=== PATIENT | male | born 1955 | race Caucasian/White ===

== ENCOUNTER 2017-09-26 18:46 | Inpatient (IN) | payer OTHER, MEDICAID ==
[~2017-09-26] VITALS: Ht 167.6 cm; Wt 84.8 kg
[~2017-09-26 18:46] MED LIST: ACT15; ASPIR-LOW81 M1 PO; CARD1 PO; GLU10 PO; GLU500 PO; LANTUS SOLOS100 U/M1 SQ; OMEPRAZOLE DR20 M1 PO; PRA10 PO; PRAVACHOL20 MG PO; TRIPHROCAPS1 SGL PO; V5 PO; VITAMIN D32000 I2 PO
[2017-09-26 22:08] LABS: BASOPHIL % 0.3 % (0-2); PLATELET COUNT 215 x10^3mcL (130-400); RED CELL DISTRIBUTION WIDTH 14.1 % (11.5-14.5)
[2017-09-26 22:16] LABS: CALCIUM 8.7 mg/dL (8.5-10.1); CARBON DIOXIDE 33.8 mmol/L (21-32); POTASSIUM SERUM 3.8 mmol/L (3.5-5.1)
[2017-09-26 22:19] LABS: CREATININE SERUM 8.1 mg/dL (0.7-1.3)
[2017-09-26] MEDS ORDERED: LOSARTAN POTASS50 M1 PO (23:40)
[2017-09-26] MEDS ORDERED: RANITIDINE HCL150 MG PO (23:41)
[2017-09-26] MEDS ORDERED: AURYXIA1 GM PO (23:42)
[2017-09-26] MEDS ORDERED: HUMALOG KW100 UNIT/1 SQ (23:42)
[2017-09-26] MEDS ORDERED: VIT D2 PO (23:44)
[2017-09-27] VITALS (10 sets, daily range): BP systolic 175–197; BP diastolic 91–102
[2017-09-27 04:12] LABS: MAGNESIUM 2.7 mg/dL (1.8-2.4); PHOSPHOROUS 2.6 mg/dL (2.5-4.9)
[2017-09-27 04:13] LABS: CHOLESTEROL/HDL RATIO 2.8
[2017-09-27 04:13] LABS: ALBUMIN 3.4 g/dL (3.4-5.0); BILIRUBIN TOTAL 0.4 mg/dL (0.20-1.00); CALCIUM 8.5 mg/dL (8.5-10.1); CARBON DIOXIDE 32.4 mmol/L (21-32); POTASSIUM SERUM 4.1 mmol/L (3.5-5.1); TOTAL PROTEIN, SERUM 6.7 g/dL (6.4-8.2)
[2017-09-27 04:14] LABS: T3 TOTAL 0.97 ng/mL
[2017-09-27 04:15] LABS: CREATININE SERUM 8.3 mg/dL (0.7-1.3)
[2017-09-27 04:29] LABS: FREE T4 1.03 ng/dL (0.76-1.46); T4(THYROXINE) 8.3 ug/dL (4.7-13.3)
[2017-09-27 04:33] LABS: IRON 89 ug/dL (65-170)
[2017-09-27 04:34] LABS: TOTAL IRON BINDING CAPACITY 201 ug/dL (250-450)
[2017-09-27 04:40] LABS: RED BLOOD CELLS 2.91 M/mm3 (4.52-5.90)
[2017-09-27 07:10] LABS: BASOPHIL % 0.3 % (0-2); PLATELET COUNT 212 x10^3mcL (130-400); RED CELL DISTRIBUTION WIDTH 13.9 % (11.5-14.5)
[2017-09-27 07:13] LABS: MAGNESIUM 2.7 mg/dL (1.8-2.4)
[2017-09-27 10:40] LABS: RED BLOOD CELLS 2.9 M/mm3 (4.52-5.90)
[2017-09-28 06:06] VITALS: BP 128/67
[2017-09-28 07:04] LABS: BASOPHIL % 0.3 % (0-2); PLATELET COUNT 227 x10^3mcL (130-400); RED CELL DISTRIBUTION WIDTH 13.9 % (11.5-14.5)
[2017-09-28 07:11] LABS: CALCIUM 8.6 mg/dL (8.5-10.1); CARBON DIOXIDE 27.8 mmol/L (21-32); MAGNESIUM 2.7 mg/dL (1.8-2.4); PHOSPHOROUS 3.5 mg/dL (2.5-4.9); POTASSIUM SERUM 4.3 mmol/L (3.5-5.1)
[2017-09-28 07:38] LABS: CREATININE SERUM 11.1 mg/dL (0.7-1.3)
[2017-09-28 10:17] VITALS: BP 146/80
[2017-09-28 15:06] VITALS: BP 159/84
[2017-09-28 17:06] VITALS: BP 176/92
[2017-09-28 20:10] VITALS: BP 163/95
[2017-09-28 22:22] VITALS: BP 128/81
[2017-09-29 01:57] LABS: UA SPECIFIC GRAVITY 1.015 (1.005-1.035); microscopic required? YES; urine erythrocyte 1+ (NEGATIVE)
[2017-09-29 02:09] LABS: AMPHETAMINE QUAL UR NONE DETECTED (NEG <=1000)
[2017-09-29 05:52] VITALS: BP 150/79
[2017-09-29 06:36] LABS: CALCIUM 9.1 mg/dL (8.5-10.1); CARBON DIOXIDE 33.3 mmol/L (21-32); POTASSIUM SERUM 3.7 mmol/L (3.5-5.1)
[2017-09-29 06:51] LABS: BASOPHIL % 1.8 % (0-2); RED CELL DISTRIBUTION WIDTH 12.6 % (11.5-14.5)
[2017-09-29 06:56] LABS: CREATININE SERUM 7.6 mg/dL (0.7-1.3); PLATELET COUNT 223 x10^3mcL (130-400)
[2017-09-29 08:42] VITALS: BP 185/88
[2017-09-29 10:30] VITALS: BP 188/96
[2017-09-29] MEDS ORDERED: ADA30 PO (10:32)
[2017-09-29] MEDS ORDERED: METOPROLOL TART25 M1 PO (10:32)
[2017-09-29] MEDS ORDERED: METOPROLOL TART50 MG PO (12:27)
[2017-09-29] MEDS ORDERED: NOR5 PO (12:27)
[2017-09-29 14:28] VITALS: BP 145/78
[2017-09-29 14:47] VITALS: BP 145/78
== END 2017-09-29 15:24 | disposition home or self-care (01) | DRG 123 ==
LOC: ED 18:46 → DU 23:48
PROVIDERS: Emergency Medicine; Family Medicine; Internal Medicine Nephrology; ADMIT Student in an Organized Health Care Education/Training Program
DX: H49.01 Third [oculomotor] nerve palsy, right eye (principal); N18.6 End stage renal disease; N17.0 Acute kidney failure with tubular necrosis; I16.9 Hypertensive crisis, unspecified; I12.0 Hypertensive chronic kidney disease with stage 5 chronic kidney disease or end stage renal disease; D68.69 Other thrombophilia; E11.22 Type 2 diabetes mellitus with diabetic chronic kidney disease; E11.39 Type 2 diabetes mellitus with other diabetic ophthalmic complication; H49.9 Unspecified paralytic strabismus; G43.909 Migraine, unspecified, not intractable, without status migrainosus; K21.9 Gastro-esophageal reflux disease without esophagitis; E78.5 Hyperlipidemia, unspecified; Z99.2 Dependence on renal dialysis; Z68.30 Body mass index [BMI] 30.0-30.9, adult; Z79.4 Long term (current) use of insulin; Z98.42 Cataract extraction status, left eye; Z98.41 Cataract extraction status, right eye; Z96.1 Presence of intraocular lens
CPT/HCPCS: 82962; 83880; 84439; A9577; J0360; J1815; J1885; J2405; J3010; J3030; J3490; J7030; Q0092; Q9967

== ENCOUNTER 2018-10-16 12:13 | Emergency (ER) | payer OTHER, MEDICAID ==
[~2018-10-16] VITALS: Ht 167.6 cm; Wt 83.0 kg
[~2018-10-16 12:13] MED LIST changes: +ADA30 PO; +AURYXIA1 GM PO; +HUMALOG KW100 UNIT/1 SQ; +LOSARTAN POTASS50 M1 PO; +METOPROLOL TART25 M1 PO; +METOPROLOL TART50 MG PO; +NOR5 PO; +RANITIDINE HCL150 MG PO; +VIT D2 PO
[2018-10-16 12:45] VITALS: BP 195/103; Ht 167.6 cm; Wt 83.0 kg
== END 2018-10-16 13:56 | disposition home or self-care (01) ==
LOC: ED 12:13
DX: K62.89 Other specified diseases of anus and rectum (principal); R21 Rash and other nonspecific skin eruption; N18.9 Chronic kidney disease, unspecified; E78.00 Pure hypercholesterolemia, unspecified; R19.7 Diarrhea, unspecified; E11.22 Type 2 diabetes mellitus with diabetic chronic kidney disease

== ENCOUNTER 2019-06-23 17:58 | Inpatient (IN) | payer OTHER, MEDICAID ==
[~2019-06-23] VITALS: Ht 165.1 cm; Wt 79.8 kg
[2019-06-23 18:08] VITALS: Ht 165.1 cm; Wt 79.8 kg
--- NOTE | 2019-06-23 18:14 | NUR ---
PT SENT TO LOBBY TO WAIT FOR BED. PT IN WHEELCHAIR. FAMILY WITH PT. NAD AT THIS TIME
[2019-06-23 19:36] LABS: BASOPHIL % 0.3 % (0-2); PLATELET COUNT 273 x10^3mcL (130-400)
--- NOTE | 2019-06-23 19:37 | NUR ---
PT PRESENTS TO ED S/P FALL AT HOME. PT STATES THAT HE LOST HIS BALANCE AT HOME AND FELL AND TWISTED HIS ANKLE, RIGHT AFTER HIS "TWISTED IT BACK INTO PLACE" AND HE HEARD CRACKING. PT STATES THAT HE IS UNABLE TO BEAR WEIGHT ON HIS R ANKLE. PT DENIES HEAD INJURY AND DENIES TAKING MEDICATION FOR HIS SYMPTOMS. PT CMS INTACT DISTAL TO INJURY. PT AOX4, RESP EVEN AND UNLABORED, NO ACUTE DISTRESS NOTED. PT FAMILY AT BEDSIDE. PT PLACED ON CM, NSR.
[2019-06-23 19:42] LABS: RED CELL DISTRIBUTION WIDTH 17.4 % (11.5-14.5)
[2019-06-23 19:51] LABS: ALBUMIN 4.4 g/dL (3.4-5.0); BILIRUBIN TOTAL 0.47 mg/dL (0.20-1.00); CALCIUM 9.9 mg/dL (8.5-10.1); CARBON DIOXIDE 25.9 mmol/L (21-32)
[2019-06-23 19:58] LABS: POTASSIUM SERUM 6.1 mmol/L (3.5-5.1)
--- NOTE | 2019-06-23 20:34 | NUR ---
PT HAS DIALYSIS SHUNT TO THE L FOREARM, RESTRICTED EXTREMITY BAND PLACED ON PT L ARM.
--- NOTE | 2019-06-23 20:46 | NUR ---
PT MEDICATED PER EMAR, RESTING IN A POSITION OF COMFORT. PT REMAINS ON FULL CM. EMT AT BEDSIDE FOR SPLINT PLACEMENT.
[2019-06-23] MEDS ORDERED: PRAVACHOL40 M1 PO (21:01)
[2019-06-23] MEDS ORDERED: GABAPENTIN100 M2 PO (21:01)
[2019-06-23] MEDS ORDERED: CALCIUM ACETAT667 M2 PO (21:01)
[2019-06-23] MEDS ORDERED: MINOXIDIL2.5 MG PO (21:02)
[2019-06-23] MEDS ORDERED: TRIPHROCAPS SOFT1 MG PO (21:02)
[2019-06-23] MEDS ORDERED: TOPROL XL100 MG PO (21:02)
--- NOTE | 2019-06-23 21:33 | NUR ---
PER PHARMACY KAYEXALATE IS ON BACK ORDER BY CONTROLLED AREA CHECKER, HE WILL ORDER NEW MEDICATION.
--- NOTE | 2019-06-23 22:05 | NUR ---
PT REPORT CALLED TO KEVIN PARR TO ASSUME PT CARE.
--- NOTE | 2019-06-23 22:13 | NUR ---
PT TRANSFERRED TO 204A BY [facility] BY CHANEL EMT AND BOLIVAR RN. PT ON MONITOR FOR TRANSPORT. PT AOX4, RESP EVEN AND UNLABORED, NO ACUTE DISTRESS NOTED. PT ACCEPTED BY KEVIN PARR TO ASSUME PT CARE. PT TRANSFERRED FROM [facility] TO BED WITHOUT INCIDENT. FAMILY AT SIDE.
--- NOTE | 2019-06-23 22:16 | NUR ---
RECEIVED PT VIA GURNEY FROM E/D, ACCOMPANIED BY RN, TRANSPORTER, AND PT'S AND DAUGHTER. PT A/A/O X 4, CALM, COOPERATIVE; C/O INTERMITTENT THROBBING H/A 6/10; WEARS GLASSES (W/ PT). ON TELE # 4, HR 68, DENIES CHEST PAIN OR DISCOMFORT AT THIS TIME. CODY RADIAL AND L PEDAL PULSES PRESENT, UNABLE TO PALPATE R PEDAL D/T SPLINT/WRAP OF RLE; R FEMORAL PULSE PRESENT, RLE +CSM; CAP REFILL < 3 SECS; SCD BY BEDSIDE. NO ACUTE RESPIRATORY DISTRESS NOTED. ABD SOFT, ROUND, NON-TENDER, NORMOACTIVE BOWEL SOUNDS X 4 QUADS, LAST BM 06/23/19, DIARRHEA. VOIDS FREELY, OLIGURIC, HEMODIALYSIS MWF, LAST: 06/22/19, SHUNT TO LFA, +THRILL/BRUIT. WEAKNESS TO RLE ([id number]) D/T R FOOT FX, C/O CONSTANT THROBBING PAIN 10/10 EXACERBATED BY MOVEMENT, RELIEVED BY REST AND PAIN MEDICATIONS. IV SITE RAC 20G, CDI. ORIENTED PT AND FAMILY MEMBERS TO ROOM, BED CONTROLS, CALL LIGHT SYSTEM. SIDE RAILS UP X 2, BED IN LOW POSITION. WILL ENDORSE TO [facility].
[2019-06-23 22:28] LABS: MAGNESIUM 3.7 mg/dL (1.8-2.4); PHOSPHOROUS 5.6 mg/dL (2.5-4.9)
[2019-06-23 22:30] LABS: CHOLESTEROL/HDL RATIO 2.6
[2019-06-23 22:35] LABS: FREE T4 0.88 ng/dL (0.76-1.46); FREE THYROXINE INDEX 2.4 ug/dL (1.4-4.5); T3 TOTAL 0.85 ng/mL
[2019-06-23 22:51] VITALS: BP 152/84
--- NOTE | 2019-06-23 23:06 | NUR ---
PT RESTING COMFORTABLLY IN BED. NO DISTRESS NOTED. PT DENIES CHEST PAIN RO SHORTNESS OF BREATH AT THIS TIME. WILL OHPKE1S.
--- NOTE | 2019-06-23 23:06 | NUR ---
PT COMPLAINED OF PAIN 7/10N IN FOOT. ADMINISTERED NORCO PER ORDER. WILL MONITOR.
--- NOTE | 2019-06-24 00:48 | NUR ---
PT RESTING IN BED WITH EYES CLOSED. NO DISTRESS NOTED. WILL CONTINUE TO MONITOR
[2019-06-24 05:47] VITALS: BP 104/59
[2019-06-24 06:43] LABS: BASOPHIL % 0.3 % (0-2); PLATELET COUNT 220 x10^3mcL (130-400)
[2019-06-24 06:58] LABS: RED CELL DISTRIBUTION WIDTH 17.3 % (11.5-14.5)
[2019-06-24 07:23] LABS: CALCIUM 8.9 mg/dL (8.5-10.1); CARBON DIOXIDE 20.1 mmol/L (21-32)
[2019-06-24 07:32] LABS: POTASSIUM SERUM 5.6 mmol/L (3.5-5.1)
[2019-06-24 07:33] LABS: CREATININE SERUM 13.9 mg/dL (0.7-1.3)
--- NOTE | 2019-06-24 08:00 | NUR ---
RECEIVED PATIENT FROM KESHAV AU. PATIENT CURRENTLY SEATED IN BED HAS MILD COMPLAINTS OF PAIN. AT BEDSIDE. PATIENT ASKED FOR BS CHECK, 147, NO COVERAGE AT THIS TIME. LAB CALLED AND NOTIFIED DR MENDOZA ABOUT ELEVATED POTASSIUM OF 5.6M TRENDING DOWNWARDS. ALSO INFORMED THAT PATIENT ASA IS ORDERED DE, NOTIFIED DR MENDOZA AND MADE AWARE. CALL LIGHT IN REACH AT THIS TIME.
[2019-06-24 08:39] VITALS: BP 154/77
--- NOTE | 2019-06-24 09:00 | NUR ---
DR MORGAN CALLED IN AND STATED THAT HE WILL BE ABLE TO COME IN TODAY AND APPLY CAST TO PATIENTS R ANKLE. INFORMED CHARGE NURSE KRISSY, ALSO INFORMED PATIENT AND PATIENT FAMILY. ALSO DR VALDOVINOS ORDERED HD AND HD NURSE AWARE.
--- NOTE | 2019-06-24 09:48 | NUR ---
DR ALVARENGA AND DR MENDOZA IN TO SPEAK WITH PATIENT AND FAMILY. STATES POSSIBLE FOR PATIENT TO GO HOME TOMORROW AFTER SEEN BY DR MORGAN. PATIENT STATES HE IS STILL FEELING MILD PAIN IN R ANKLE. DR MENDOZA AWARE BUT WILL KEEP ON PRN NORCO AT THIS TIME. WILL CONTINUE TO MONITOR. HD NURSE HAS ARRIVED FOR TREATMENT. FAMILY AT BEDSIDE.
[2019-06-24 12:36] VITALS: BP 93/54
--- NOTE | 2019-06-24 14:36 | NUR ---
PATIENT OFF UNIT DOWN TO OR FOR CAST PLACEMENT.
--- NOTE | 2019-06-24 15:53 | NUR ---
PHYSICAL THERAPY NOTE PATIENT UNABLE TO BE SEEN SECONDARY TO RIGHT ANKLE CAST APPLICATION. WILL ATTEMPT NEXT VISIT. NURSING AWARE.
--- NOTE | 2019-06-24 17:17 | NUR ---
PATIENT HAS RETURNED TO ROOM POST CAST.
--- NOTE | 2019-06-24 18:44 | NUR ---
EXPLAINED TO PATIENT AND FAMILY ABOUT CARE OF CAST, AND THAT THE NEED TO FU WITH DR MORGAN ABOUT CAST REMOVAL. PATIENT AND FAMILY VERBALIZES UNDERSTANDING AND NEED FOR PHYSICAL THERAPY. NO COMPLAINTS OF PAIN AT THIS TIME. WILL ENDORSE TO ONCOMING NURSE, CALL LIGHT IN REACH.
[2019-06-24 19:20] VITALS: BP 126/70
--- NOTE | 2019-06-24 19:20 | NUR ---
PT IS A/O X4. DENIES VENTURA OR DIZZINESS. BREATHING IS EVEN AND UNLABORED. DENIES CP. ON TELE #4 W SR ON MONITOR. BP 127/70. DIALYSIS DONE TODAY AT AV SHUNT TO LFA WITH GOOD BRUIT AND THRILLS. STATUS POST CAST PLACEMENT TO RIGHT LEG TODAY. SKIN IS WARM TO TOUCH, NO SWELLING PRESENT. CAP REFILL <3. PT C/O OF 8/10 THROBBING PAIN. WILL MEDICATE ACCORDINGLY. ENCOURAGED PT TO USE CALL LIGHT FOR ASSISTANCE. REQUESTED TO CHECK BS TONIGHT. PT HAS HX OF DIABETES, WILL CONTACT RESIDENT TONIGHT.
--- NOTE | 2019-06-24 20:23 | NUR ---
DR. JENIFER BOYLE MADE AWARE OF PTS REQUEST ON BS CHECK. ORDERS GIVEN AND WILL CARRY OUT.
--- NOTE | 2019-06-24 20:54 | NUR ---
ROUTINE MEDICATIONS GIVEN AND TOLERATED WELL. PAIN MEDICATION ADMINISTERED. WILL REASSESS PAIN LEVEL. NO S/SX OF ACUTE DISTRESSS. WILL CONTINUE TO MONITOR. CALL LIGHT WITHIN REACH.
--- NOTE | 2019-06-24 22:15 | NUR ---
REPORTED TO DR. TOPETE BS OF 210. WITH NEW ORDERS FOR REGULAR INSULIN PER SLIDING SCALE.
--- NOTE | 2019-06-24 23:17 | NUR ---
PT IS ASLEEP BUT AROUSABLE WHEN CALLED. VISITOR IS ASLEEP AT BEDSIDE. CALL LIGHT WITHIN REACH. WILL CONTINUE TO MONITOR.
--- NOTE | 2019-06-25 02:27 | NUR ---
PT IS ASLEEP IN BED. NO ACUTE DISTRESS NOTED. WILL CONTINUE TO MONITOR.
--- NOTE | 2019-06-25 05:04 | NUR ---
PT SLEPT THROUGHOUT THE NIGHT. MEDICATED WITH NORCO 7.5MG X1. BREATHING IS EVEN AND UNLABORED. NO ACUTE DISTRESS. ALL NEEDS MET. WILL CONTINUE TO MONITOR.
[2019-06-25 06:14] VITALS: BP 123/70
[2019-06-25 06:16] LABS: BASOPHIL % 0.4 % (0-2); PLATELET COUNT 197 x10^3mcL (130-400)
--- NOTE | 2019-06-25 06:28 | NUR ---
PT C/O OF PAIN 5/10 ON RLE. MEDICATED PER MD ORDER. WILL REASSESS AND CONTINUE TO MONITOR.
[2019-06-25 06:51] LABS: CARBON DIOXIDE 29.5 mmol/L (21-32); MAGNESIUM 2.5 mg/dL (1.8-2.4); PHOSPHOROUS 6.8 mg/dL (2.5-4.9)
[2019-06-25 07:05] LABS: CREATININE SERUM 10.1 mg/dL (0.7-1.3)
--- NOTE | 2019-06-25 07:20 | NUR ---
ENDORSED CARE TO SRINIVASAN PARR.
--- NOTE | 2019-06-25 07:22 | NUR ---
RECEIVED HAND OFF REPORT FROM HANANE LEO RN. PATIENT AWAKE AND ALERT [place] SPEAKING MAINLY. PATIENT COMPLAINING OF MILD PAIN TO RIGHT LEG, NORCO NOT DUE. OFFERED PATIENT COMFORT MEASURES. CAST ON RIGHT LEG, PMSC GOOD. PATIENT FAMILY AT BEDSIDE. CALL LIGHT WITHIN REACH WILL CONTINUE TO MONITOR
[2019-06-25 07:28] LABS: RED CELL DISTRIBUTION WIDTH 17.3 % (11.5-14.5)
[2019-06-25 08:01] VITALS: BP 117/60
--- NOTE | 2019-06-25 09:50 | NUR ---
PATIENT WAS WORKING WITH [facility]ER[facility] AND HAD EPISODE OF NAUSEA AND VOMITING. MEDICATED PATIENT WITH ZOFRAN PRN. ADMINISTERED OTHER MEDICATIONS PER DEC. PATIENT COMPLAINING OF HEADACHE AT THIS TIME, MEDICATED WITH TYLENOL PER DEC.
--- NOTE | 2019-06-25 11:07 | NUR ---
PATIENT RESTING AT THIS TIME WITH FAMILY AT BEDSIDE. REPORTS THAT PAIN IS 3/10, DOES NOT WANT MEDICATION. ENCOURAGED THE PATIENT TO USE CALL LIGHT IF PAIN INCREASES. CALL LIGHT WITHIN REACH
[2019-06-25 11:54] VITALS: BP 111/64
[2019-06-25 16:36] VITALS: BP 95/51
--- NOTE | 2019-06-25 18:00 | NUR ---
PATIENT COMPLAINING OF THROBBING 6/10 PAIN TO RIGHT LEG, ADMINISTERED NORCOR PRN FOR PAIN. NO OTHER COMPLAINTS AT THIS TIME, WILL ENDORSE TO CLEANING MATRON
--- NOTE | 2019-06-25 19:37 | NUR ---
RECEIVED REPORT FROM SRINIVASAN PARR. PT IS A/O X4. DENIES VENTURA, DIZZINESS, AND NAUSEA. BREATHING IS EVEN AND UNLABORED. NO RESP DISTRESS. DENIES CP. TELE #4 W SR ON MONITOR. BP 145/66. NO ACUTE DISTRESS NOTED. AV SHUNT GOOD BRUIT AND THRILL. RIGHT LEG W/ CAST HAS GOOD CAP REFILL, NO SWELLING, WARM TO TOUCH. WAS MEDICATED WITH NORCO AT 1800, WILL REASSESS PAIN. DAUGHTERS AT BED SIDE. ENCOURAGED PT TO USE CALL LIGHT FOR ASSISTANCE. WILL CONTINUE TO MONITOR.
[2019-06-25 19:43] VITALS: BP 148/76
--- NOTE | 2019-06-25 21:23 | NUR ---
PT IS AWAKE, LYING IN BED. IS AT BEDSIDE. ROUTINE MEDICATIONS GIVEN AND TOLERATED WELL. CALL LIGHT WITHIN REACH. WILL CONTINUE TO MONITOR.
--- NOTE | 2019-06-26 00:59 | NUR ---
PT IS ASLEEP WITH AT BEDSIDE. NO SIGNS OF RESP DISTRESS. BREATHING IS EVEN AND UNLABORED. WILL CONTINUE TO MONITOR.
--- NOTE | 2019-06-26 05:24 | NUR ---
PT SLEPT THROUGHOUT THE NIGHT. BREATHING IS EVEN AND UNLABORED. NO RESP DISTRESS. COMFORT AND SAFETY MEASURES MAINTAINED. ALL NEEDS ASSESSED AND ATTENDED TO. BED IN LOWEST POSITION. CALL LIGHT WITHIN REACH. WILL CONTINUE TO MONITOR.
[2019-06-26 05:54] VITALS: BP 156/82
--- NOTE | 2019-06-26 06:34 | NUR ---
PT C/O OF PAIN 04/27. MEDICATED PER MD ORDER. WILL REASSESS AND CONTINUE MONITORING.
[2019-06-26 06:47] LABS: CALCIUM 7.7 mg/dL (8.5-10.1); CARBON DIOXIDE 27.4 mmol/L (21-32); MAGNESIUM 2.7 mg/dL (1.8-2.4); PHOSPHOROUS 7.5 mg/dL (2.5-4.9); POTASSIUM SERUM 5.2 mmol/L (3.5-5.1)
[2019-06-26 06:52] LABS: CREATININE SERUM 12.9 mg/dL (0.7-1.3)
[2019-06-26 07:05] LABS: BASOPHIL % 0.5 % (0-2); PLATELET COUNT 198 x10^3mcL (130-400)
[2019-06-26 07:15] LABS: RED CELL DISTRIBUTION WIDTH 16.6 % (11.5-14.5)
--- NOTE | 2019-06-26 07:34 | NUR ---
PT COMPLIED WITH NURSING CARE THROUGHTOUT SHIFT W/ NO ACUTE EVENTS OVERNIGHT, ENDORSED CARED TO SRINIVASAN PARR.
[2019-06-26 09:15] VITALS: BP 127/66
--- NOTE | 2019-06-26 10:19 | NUR ---
ADMINSTERED MEDICATION PER MAR. PATIENT NOT COMPLAINNIG OF PAIN, INFORMED OF KAREN'S RECOMMENDATION FOR D.C TOMORROW TO POSSIBLE SNF FOR REHAB. CALL LIGHT WITHIN REACH
--- NOTE | 2019-06-26 12:00 | NUR ---
GLUCOSE REDULT WAS 193, ADMINISTERED 3UNITS REGULAR INSULIN PER SLIDING SCALE. PATIENT NOT COMPLAINING OF PAIN AT THIS TIME CALL LIGHT WITHIN REACH WILL CONTINUE TO MONITOR
[2019-06-26 13:50] VITALS: BP 155/70
[2019-06-26 16:30] VITALS: BP 137/76
[2019-06-26 19:10] VITALS: BP 160/77
--- NOTE | 2019-06-26 19:10 | NUR ---
RECEIVED PT AWAKE ALERT AND VERBALLY RESPONSIVE IN THAI.DENIES CHESTPAIN AT THIS TIME.BP 160/77 MMHG,HR 75.TX 6/10 TO RLE.R LEG CAST IN PLACED WITH GOOD CIRCULATION.GOOD CAPILLARY REFILL.WARM TO TOUCH.KEPT ELEVATED ON A PILLOW.NWB TO RLE ORDERED.FAMILY AT BEDSIDE.WILL CONTINUE TO MONITOR
--- NOTE | 2019-06-27 04:53 | NUR ---
PT SLEPT WELL WITH AT BEDSIDE.MEDICATED WITH NORCO 7.5 MG PO X1 FOR R LEG PAIN WITH GOOD RELIEF.GOOD CIRCULATION TO R LEG CAST.KEPT ELEVATED.WILL CONTINUE TO MONITOR.
[2019-06-27 05:13] VITALS: BP 147/90
--- NOTE | 2019-06-27 06:09 | NUR ---
DIALYSIS ONGOING AT THIS TIME.
[2019-06-27 06:14] LABS: BASOPHIL % 0.3 % (0-2); PLATELET COUNT 200 x10^3mcL (130-400)
[2019-06-27 06:48] LABS: RED CELL DISTRIBUTION WIDTH 16.2 % (11.5-14.5)
[2019-06-27 06:55] LABS: CALCIUM 7.5 mg/dL (8.5-10.1)
--- NOTE | 2019-06-27 08:00 | NUR ---
PATIENT HAS BEEN WITH CLEAR BREATH SOUNDS AND BOWEL S0UNDS ACTIVE. NOTE THE PATIENT HAS SPLINT CAST TO THE RIGHT LEG DUE TO FRACTURE OF THE RIGHT ANKLE DUE TO A FALL. PATIENT HAS TOLERTED DIET AND HAS BEEN ON BEDREST AND FOR DISCHARGE PLAN TO SNF FOR REHABILITATION. PATIENT HAS VITALS AT THIS TIME AT 98.1,56, 18, 147/90, 96% ON ROOM AIR. PATIENT HAS NO WEIGHT BEARING ORDERED FOR THE RIGHT ANKLE. SEEN BY DR MILLS AND DR MORGAN INDICATED. IV TO HEPLOCK AT THIS TIME. AV SHUNT TO THE LEFT ARM AND DRESSING INTACT AND NO ACTIVE BLEEDING NOTED. HX OF RENAL FAILURE NOTED. PATIENT HAS ALSO HTN RELATED ISSUES WILL CONTINUE TO MONITOR INDICATED.
[2019-06-27 08:19] LABS: CREATININE SERUM 15.6 mg/dL (0.7-1.3)
[2019-06-27 08:20] LABS: PHOSPHOROUS 9.1 mg/dL (2.5-4.9)
[2019-06-27 08:27] VITALS: BP 102/65; BP 91/53
--- NOTE | 2019-06-27 10:23 | NUR ---
PATIENT RECEIVED ON DIALYSIS AND TOELRATED WELL SO FAR. PATEINT HAS FAMILY AT BESIDE AND HAS BEEN NOTED WITH LABS AT H [facility] OF 104/31, POTASSIUM AT 5.2, BUN AT 82, AND THE CREATININE AT 12.9. BLOOD SUGAR AT 161 AND RECEIVED INSULIN COVERAGE AT THAT TIME. PATIENT AHS BEEN NORMAL SINUS ON THE MONITOR. PATIENT WITH SPLINT TO THE RIGHT LEG DUE TO TIB/FIB FRACTURE. AV SHUNT TO THE LEFT ARM AND VITALS AT THIS TIME AT 98.1, 86, 18, 147/90, 96%. WILL CONTINUE TO MONITOR INDICATED.
[2019-06-27 11:53] VITALS: BP 155/84
--- NOTE | 2019-06-27 12:41 | NUR ---
GAVE THE BP MEDICATION WHEN THE BP CATRINA. PATIENT ALSO HAD GOOD RELIEF WITH THE NORCO GIVEN FOR HIS LEG PAIN. PATIENT HAS BEEN SEEN B MANAGEMENT SPECIALIST AND PLAN OF [facility] IS FOR HOME HEALTH RATHER THAN SNF. AWAITING ARRANGEMENTS AT THIS TIME.
--- NOTE | 2019-06-27 15:43 | NUR ---
PHYSICAL THERAPY DAILY NOTES CO-SIGN All documentation done by the Tutoring Assistant for 06/27/19 has been reviewed. I agree with the documentation. Reviewed/Co-Signed by: Yoselin Lenz PT Documentation Done by:CAMDEN MARSHALL PTA
[2019-06-27 17:16] VITALS: BP 169/88
--- NOTE | 2019-06-27 18:35 | NUR ---
PATIENT HAS RECEIVED HIS WALKER PER ASSOCIATE FIELD SERVICE ENGINEER MADAN AND PATIENT JULIANA AND TELE REMOVED AND PATIENT IS DISCHARGE TO HOME. PATIENT TO NOT WEIGHT BEAR ON THE AFFECTED FOOT. TO MONITOR FOR ANY SWELLING OR PAIN THAT IS ATTRIBUTE WITH THE PATIENT FOOT SWELLING. PATIENT IS TO FOLLOW UP WITH PRIMARY DOCTOR POST DISCHARGE.
== END 2019-06-27 17:50 | disposition home health service (06) | DRG 562 ==
LOC: ED 17:58 → DU 21:41
PROVIDERS: Emergency Medicine; Internal Medicine Nephrology; Neuromusculoskeletal Medicine, Sports Medicine; ADMIT Internal Medicine
PROC: 2W3QX2Z Immobilization of Right Lower Leg using Cast (ICD-10-PCS; principal; 2019-06-24 14:15)
DX: S82.391A Other fracture of lower end of right tibia, initial encounter for closed fracture (principal); N18.6 End stage renal disease; N17.0 Acute kidney failure with tubular necrosis; I12.0 Hypertensive chronic kidney disease with stage 5 chronic kidney disease or end stage renal disease; S82.831A Other fracture of upper and lower end of right fibula, initial encounter for closed fracture; E83.39 Other disorders of phosphorus metabolism; E87.5 Hyperkalemia; E83.41 Hypermagnesemia; E11.22 Type 2 diabetes mellitus with diabetic chronic kidney disease; Z99.2 Dependence on renal dialysis; Z68.29 Body mass index [BMI] 29.0-29.9, adult; Z79.84 Long term (current) use of oral hypoglycemic drugs; W18.39XA Other fall on same level, initial encounter; Y93.89 Activity, other specified; Y92.012 Bathroom of single-family (private) house as the place of occurrence of the external cause
CPT/HCPCS: 82962; 83880; 84439; 97110-GP; 97116-GP; 97530-GP; G0378; J2405; J3010; J7030; Q0092

== ENCOUNTER → 2019-08-04 | Outpatient (CLI) | payer OTHER, MEDICAID ==
[~2019-08-04] MED LIST changes: +CALCIUM ACETAT667 M2 PO; +GABAPENTIN100 M2 PO; +MINOXIDIL2.5 MG PO; +PRAVACHOL40 M1 PO; +TOPROL XL100 MG PO; +TRIPHROCAPS SOFT1 MG PO
== END | disposition home or self-care (01) ==
LOC: RD 09:55
DX: S82.201A Unspecified fracture of shaft of right tibia, initial encounter for closed fracture (principal); S82.401A Unspecified fracture of shaft of right fibula, initial encounter for closed fracture; X58.XXXA Exposure to other specified factors, initial encounter; Y92.9 Unspecified place or not applicable

== ENCOUNTER → 2019-09-09 | Outpatient (CLI) | payer OTHER, MEDICAID | END | disposition home or self-care (01) | LOC: RD 10:19 | DX: S82.401D Unspecified fracture of shaft of right fibula, subsequent encounter for closed fracture with routine healing (principal); X58.XXXD Exposure to other specified factors, subsequent encounter ==

== ENCOUNTER → 2019-10-13 | Outpatient (CLI) | payer OTHER, MEDICAID | END | disposition home or self-care (01) | LOC: RD 10:40 | DX: S82.401D Unspecified fracture of shaft of right fibula, subsequent encounter for closed fracture with routine healing (principal); X58.XXXD Exposure to other specified factors, subsequent encounter ==

== ENCOUNTER 2020-04-30 10:04 | Emergency (ER) | payer OTHER, MEDICAID, SELFPAY ==
[~2020-04-30] VITALS: Ht 165.1 cm; Wt 39.5 kg
[2020-04-30 10:17] VITALS: Ht 165.1 cm; Wt 39.5 kg
[2020-04-30 11:23] LABS: BASOPHIL % 0.1 % (0-2); PLATELET COUNT 188 x10^3mcL (130-400)
[2020-04-30 11:26] LABS: ALBUMIN 3.5 g/dL (3.4-5.0); C REACTIVE PROTEIN 8.3 mg/dL (<=0.9); CALCIUM 9.2 mg/dL (8.5-10.1); POTASSIUM SERUM 4.5 mmol/L (3.5-5.1); TOTAL PROTEIN, SERUM 8.1 g/dL (6.4-8.2)
[2020-04-30 11:37] LABS: CREATININE SERUM 8.3 mg/dL (0.7-1.3); RED CELL DISTRIBUTION WIDTH 15.3 % (11.5-14.5)
[2020-04-30 11:51] LABS: BILIRUBIN TOTAL 0.7 mg/dL (0.20-1.00)
[2020-04-30 14:18] VITALS: BP 146/81
== END 2020-04-30 14:18 | disposition home or self-care (01) ==
LOC: ED 10:04
PROVIDERS: Specialist
DX: U07.1 COVID-19 (principal); I12.9 Hypertensive chronic kidney disease with stage 1 through stage 4 chronic kidney disease, or unspecified chronic kidney disease; E11.22 Type 2 diabetes mellitus with diabetic chronic kidney disease; N18.9 Chronic kidney disease, unspecified; I67.82 Cerebral ischemia; R11.2 Nausea with vomiting, unspecified; Z90.49 Acquired absence of other specified parts of digestive tract; E78.00 Pure hypercholesterolemia, unspecified; Z99.2 Dependence on renal dialysis
CPT/HCPCS: 36600; 83880; 87804; J3490; U0003-CS